=== PATIENT | male | born 1985 | race Caucasian/White ===

== ENCOUNTER → 2017-06-24 | Outpatient (CLI) | payer MEDICAID ==
--- NOTE | 2017-06-24 10:00 | RADIOLOGY REPORT (SQ) ---
EXAM DESCRIPTION: U/S RETROPERITON (RENAL/AORTA) COMPLETED DATE/TIME: 06/24/2017 9:35 am REASON FOR STUDY: HTN I10 ESSENTIAL (PRIMARY) HYPERTENSION COMPARISON: None. TECHNIQUE: Dynamic and static grayscale images acquired of the kidneys and bladder and recorded on P ACS. Additional selected color Doppler and spectral images recorded. LIMITATIONS: None. FINDINGS: RIGHT KIDNEY: The right kidney measures 10.2 cm in length, normal size. Normal echogenici ty. No solid or suspicious masses. No hydronephrosis. No calcifications. LEFT KIDNEY: Left kidney measures 10.6 cm in length, normal size. Normal echogenicity. No solid or s uspicious masses. No hydronephrosis. No calcifications. BLADDER: Internal echoes are present within the urinary bladder, may be on the basis of debris. Mild diffuse thickening of the urinary bladder wall is suggested, may represent inflammatory changes. OTHER FINDINGS: No other significant finding. IMPRESSION: 1 Renal ultrasound examination is unremarkable. 2 Mild diffuse thickening of the urinary bladder wall may be on the basis of inflammatory changes. U rinary bladder debris is noted. TECHNICAL DOCUMENTATION: JOB ID: [id number] [facility]- All Rights Reserved Reading location - IP/workstation name: [email or web address]
--- NOTE | 2017-06-24 11:46 | RADIOLOGY REPORT (SQ) ---
EXAM DESCRIPTION: U/S [facility] DUPLEX ART/BRENNAN FLOW COMPLETED DATE/TIME: 06/24/2017 9:35 am REASON FOR STUDY: HTN I10 ESSENTIAL (PRIMARY) HYPERTENSION COMPARISON: None. TECHNIQUE: Realtime and static grayscale images acquired. Selected color Doppler, velocities and spe ctral images recorded. LIMITATIONS: None. FINDINGS: RIGHT KIDNEY: RENAL ARTERY VELOCITIES: 47 cm/sec. Segmental artery velocity 43 cm/sec. RENAL VEIN: Color doppler flow present, patent. VELOCITY RATIO: 0.8. Normal waveforms. KIDNEY: Normal size. No significant pathology. LEFT KIDNEY: RENAL ARTERY VELOCITIES: 71 cm/sec. Segmental artery velocity 39 cm/sec. RENAL VEIN: Color doppler flow present, patent. VELOCITY RATIO: 1.1. Normal waveforms. KIDNEY: Normal size. No significant pathology. BLADDER: Normal. OTHER: No other significant finding. IMPRESSION: NO DOPPLER EVIDENCE OF HEMODYNAMICALLY SIGNIFICANT RENAL ARTERY STENOSIS. COMMENT: NORMAL RENAL ARTERY/AORTA VELOCITY RATIO IS LESS THAN OR EQUAL TO 3.5. TECHNICAL DOCUMENTATION: JOB ID: [id number] [employer]- All Rights Reserved Reading location - IP/workstation name: [email or web address]-RR
== END ==
LOC: RAD 08:14
PROVIDERS: ATTEND Registered Nurse
DX: I10 Essential (primary) hypertension (principal)
CPT/HCPCS: 76770; 93976

== ENCOUNTER 2018-03-04 22:12 | Emergency (ER) | payer MEDICAID ==
--- NOTE | 2018-03-05 01:42 | ER Document Report ---
ED Extremity Problem, Lower - General Chief Complaint: Laceration Stated Complaint: RIGHT KNEE PAIN Time Seen by Provider: 03/05/18 01:41 Mode of Arrival: Ambulatory Information source: Patient Notes: Patient is a 32-year-old male who presents with laceration to the left knee. Patient reports that he was using a knife to cut "zip ties on a metal fence" when the knife slipped and cut his right knee. He denies numbness or tingling of the extremity, bleeding was easily controlled, no pain or discomfort of the knee. He is able to ambulate without difficulties. He reports his last tetanus shot was "a few years ago." TRAVEL OUTSIDE OF THE [place] IN LAST 30 DAYS: No - HPI Patient complains to provider of: Injury Location: Knee Occurred: This afternoon Where: Home, Outdoors Onset/Duration: Sudden Quality of pain: No pain Severity: Mild Pain Level: Denies Context: Laceration Exacerbated by: Nothing Relieved by: Nothing - Related Data Allergies/Adverse Reactions: No Known Allergies Allergy (Unverified 03/04/18 22:16) Past Medical History - General Information source: Patient - Social History Smoking Status: Current Some Day Smoker Frequency of alcohol use: Occasional Drug Abuse: None Lives with: Family Family History: Reviewed & Not Pertinent Patient has suicidal ideation: No Patient has homicidal ideation: No - Past Medical History Cardiac Medical History: Reports: Hx Hypertension Pulmonary Medical History: Reports: None EENT Medical History: Reports: None Neurological Medical History: Reports: None Endocrine Medical History: Reports: None Renal/ Medical History: Reports: None Malignancy Medical History: Reports None GI Medical History: Reports: Hx Gastroesophageal Reflux Disease Musculoskeletal Medical History: Reports None Skin Medical History: Reports None Psychiatric Medical History: Reports: Hx Bipolar Disorder, Hx Schizophrenia Traumatic Medical History: Reports: None Infectious Medical History: Reports: None Surgical Hx: Negative Past Surgical History: Reports: None - Immunizations Immunizations up to date: Yes Hx Diphtheria, Pertussis, Tetanus Vaccination: Yes Review of Systems - Review of Systems Constitutional: No symptoms reported EENT: No symptoms reported Cardiovascular: No symptoms reported Respiratory: No symptoms reported Gastrointestinal: No symptoms reported Genitourinary: No symptoms reported Male Genitourinary: No symptoms reported Musculoskeletal: No symptoms reported Skin: See HPI, Other - Laceration Hematologic/Lymphatic: No symptoms reported Neurological/Psychological: No symptoms reported -: Yes All other systems reviewed and negative Physical Exam - Vital signs Vitals: Temp Pulse Resp BP Pulse Ox 98.0 F 94 15 138/91 H 97 03/04/18 22:31 03/04/18 22:31 03/04/18 22:31 03/04/18 22:31 03/04/18 22:31 Interpretation: Normal - Notes Notes: Well-appearing in no acute distress - General General appearance: Appears well, Alert - HEENT Head: Normocephalic, Atraumatic Eyes: Normal Pupils: PERRL - Respiratory Respiratory status: No respiratory distress Chest status: Nontender Breath sounds: Normal Chest palpation: Normal - Cardiovascular Rhythm: Regular Heart sounds: Normal auscultation Murmur: No - Abdominal Inspection: Normal Distension: No distension Bowel sounds: Normal Tenderness: Nontender Organomegaly: No organomegaly - Rectal Notes: Deferred - Genitourinary Notes: Deferred - Back Back: Normal, Nontender - Extremities General upper extremity: Normal inspection, Nontender, Normal color, Normal ROM, Normal temperature General lower extremity: Nontender, Normal color, Normal ROM, Normal tempera ture, Normal weight bearing. No: Cecelia's sign Knee: Nontender, Laceration - Approximately 1 cm linear laceration to the medial right knee, bleeding is controlled, no visible foreign body - Neurological Neuro grossly intact: Yes Cognition: Normal Orientation: AAOx4 Trona Coma Scale Eye Opening: Spontaneous Shanna Coma Scale Verbal: Oriented Shanna Coma Scale Motor: Obeys Commands Trona Coma Scale Total: 15 Speech: Normal Motor strength normal: LUE, RUE, LLE, RLE Sensory: Normal - Psychological Associated symptoms: Normal affect, Normal mood - Skin Skin Temperature: Warm Skin Moisture: Dry Skin Color: Normal Course - Re-evaluation Re-evalutation: 03/05/18 03:24 X-rays are negative for metallic foreign body. Patient was given oral Keflex and will have his laceration cleaned and repaired with suture material. He will be reassessed after the procedure. 03/05/18 04:26 Laceration repair without difficulties, please see procedure note for details. Patient will be discharged home with return precautions and follow-up, he will be provided with a prescription for Keflex. Patient voices both understanding and agreeing with the plan. - Vital Signs Vital signs: Temp Pulse Resp BP Pulse Ox 98.0 F 94 15 138/91 H 97 03/04/18 22:31 03/04/18 22:31 03/04/18 22:31 03/04/18 22:31 03/04/18 22:31 - Diagnostic Test Radiology reviewed: Reports reviewed Procedures - Laceration/Wound Repair Right Medial Knee Time completed: 04:27 Wound length (cm): 1.5 Wound's Depth, Shape: Superficial, Linear Laceration pre-procedure: Sterile PPE donned, Chloraprep applied, Sterile drapes applied Anesthetic type: 1% Lidocaine w/epi Volume Anesthetic (mLs): 5 Wound explored: Clean, No foreign body removed Irrigated w/ Saline (mLs): 500 Wound Debrided: Minimal Wound Repaired With: Sutures Suture Size/Type: 4:0, Prolene Number of Sutures: 3 - Horizontal mattress Layer Closure?: No Post-procedure wound care: Sterile dressing applied Post-procedure NV exam normal: Yes Complications: No Notes: 03/05/18 04:28 Well-tolerated Discharge - Discharge Clinical Impression: Laceration of right knee Qualifiers: Encounter type: initial encounter Qualified Code(s): S81.011A - Laceration without foreign body, right knee, initial encounter Condition: Good Disposition: HOME, SELF-CARE Instructions: Laceration Care ([facility]) Additional Instructions: Please follow-up with your primary physician in 7-10 days to have your stitches removed, if they are unavailable you may return to the emergency department to have them removed. Take the prescribed antibiotics as instructed. Return to the emergency department if you experience high fevers, increased swelling or drainage from the area, or have any other concerning symptom. Prescriptions: Cephalexin Monohydrate [Keflex 500 mg Capsule] 500 mg PO Q6H 10 Days #40 capsule Referrals: SHAWN DELEON, NUCLEAR RADIATION ENGINEER [Primary Care Provider] - Follow up as needed Print Language: Indonesian
--- NOTE | 2018-03-05 01:54 | RADIOLOGY REPORT (SQ) ---
4 VIEWS OF THE RIGHT KNEE HISTORY: Laceration to medial knee. Pain to medial aspect of knee. COMPARISON: None. FINDINGS: No acute fracture is seen. The joint spaces are preserved. There is a small knee joint effusion. IMPRESSION: No acute fracture is seen, although there is a small knee joint effusion. Consider CT scan if there is high clinical concern or point tenderness.
[2018-03-05] MEDS ORDERED: LIDOCAINE 1%/EPINEPHRINE INJ 20 ML VIAL INJ ONE (02:18)
[2018-03-05] MEDS ORDERED: CEPHALEXIN 500 MG CAPSULE PO ONE (02:21)
[2018-03-05] MEDS ORDERED: TRAMADOL HCL 50 MG TABLET PO ONE (02:21)
[2018-03-05 04:41] VITALS: BP 137/84
== END 2018-03-05 04:42 | disposition home or self-care (01) ==
LOC: ER 22:12
DX: S81.011A Laceration without foreign body, right knee, initial encounter (principal); W26.0XXA Contact with knife, initial encounter; Y93.89 Activity, other specified; Y92.009 Unspecified place in unspecified non-institutional (private) residence as the place of occurrence of the external cause; F17.200 Nicotine dependence, unspecified, uncomplicated; I10 Essential (primary) hypertension
CPT/HCPCS: 99283; 73564; 12001; J3490

== ENCOUNTER 2018-03-14 10:45 | Emergency (ER) | payer MEDICAID ==
[2018-03-14] MEDS ORDERED: LABETALOL HCL INJ 20 MG/4 ML DISP.SYRIN IV ONE ×3 (11:52→12:40)
--- NOTE | 2018-03-14 11:55 | ER Document Report ---
ED Medical Screen (RME) - General Chief Complaint: High Blood Pressure Stated Complaint: BLOOD PRESSURE ISSUE Time Seen by Provider: 03/14/18 11:45 TRAVEL OUTSIDE OF THE [place] IN LAST 30 DAYS: No - HPI Notes: 03/14/18 11:54 Patient is a 32-year-old male that presents to the emergency department for chief complaint of hypertension. Patient has history of hard to control hypertension and is on lisinopril, hydrochlorothiazide, and clonidine. He states he did take these medications this morning and denies any missed medications. He is currently asymptomatic. He was being seen at [facility] and was referred to us for the hypertension. ROS: GENERAL: Denies fever of chills CV: Denies chest pain PHYSICAL EXAMINATION: GENERAL: Well-appearing, well-nourished and in no acute distress. HEAD: Atraumatic, normocephalic. EYES: Pupils equal round extraocular movements intact, conjunctiva are normal. ENT: Nares patent NECK: Normal range of motion LUNGS: No respiratory distress Musculoskeletal: Normal range of motion NEUROLOGICAL: Normal speech, normal gait. PSYCH: Normal mood, normal affect. MDM: Patient seen and examined for rapid initial assessment. Vital signs reviewed. A comprehensive ED assessment and evaluation of the patient, analysis of test results and completion of the medical decision making process will be conducted by additional ED providers. - Related Data Allergies/Adverse Reactions: No Known Allergies Allergy (Unverified 03/04/18 22:16) Past Medical History - Social History Chew tobacco use (# tins/day): No Drug Abuse: None - Past Medical History Cardiac Medical History: Reports: Hx Hypertension Renal/ Medical History: Reports: Hx Peritoneal Dialysis GI Medical History: Reports: Hx Gastroesophageal Reflux Disease Psychiatric Medical History: Reports: Hx Bipolar Disorder, Hx Schizophrenia - Immunizations Immunizations up to date: Yes Hx Diphtheria, Pertussis, Tetanus Vaccination: Yes Physical Exam - Vital signs Vitals: Temp Pulse Resp BP Pulse Ox 98.5 F 116 H 16 200/145 H 98 03/14/18 10:49 03/14/18 10:49 03/14/18 10:49 03/14/18 10:49 03/14/18 10:49 Course - Vital Signs Vital signs: Temp Pulse Resp BP Pulse Ox 98.5 F 116 H 16 200/145 H 98 03/14/18 10:49 03/14/18 10:49 03/14/18 11:43 03/14/18 10:49 03/14/18 10:49 Doctor's Discharge - Discharge Referrals: SHAWN DELEON STRATEGY LEAD [Primary Care Provider] - Follow up as needed
[2018-03-14 12:37] LABS: ABSOLUTE BASOPHILS # (AUTO) 0.1 10^3/uL (0.0-0.2); ABSOLUTE LYMPHOCYTES (AUTO) 1.1 10^3/uL (0.5-4.7); ABSOLUTE MONOCYTES (AUTO) 0.6 10^3/uL (0.1-1.4); BASOPHILS % (AUTO) 0.6 % (0-2); EOSINOPHILS % (AUTO) 0.3 % (0-6); HEMATOCRIT 46.3 % (37.9-51.0); HEMOGLOBIN 16.7 g/dL (13.5-17.0); LYMPHOCYTES % (AUTO) 10.9 % (13-45); MEAN CORPUSCULAR HGB CONC 36.1 g/dL (32.0-36.0); MEAN CORPUSCULAR VOLUME 89 fl (80-97); MONOCYTES % (AUTO) 6.2 % (3-13); PLATELET COUNT 349 10^3/uL (150-450); RED BLOOD COUNT 5.23 10^6/uL (4.35-5.55); RED CELL DISTRIBUTION WIDTH 12.2 % (11.5-14.0); TOTAL CELLS COUNTED % (AUTO) 100 %; WHITE BLOOD COUNT 9.8 10^3/uL (4.0-10.5)
--- NOTE | 2018-03-14 12:39 | ER Document Report ---
ED Blood Pressure Problem - General Chief Complaint: High Blood Pressure Stated Complaint: BLOOD PRESSURE ISSUE Time Seen by Provider: 03/14/18 11:45 Mode of Arrival: Ambulatory Information source: Patient Notes: Chief complaint: Elevated blood pressure History of complain:( obtained from----patient) 32 years old male with history of high blood pressure presents today with elevated blood pressure. According to the DKA his noncompliant with medications. Eats lots of chips which contain salt. He is asymptomatic. Denies any headache denies any focal weaknesses denies any chest pain denies any constitutional symptoms. Onset: Gradual Duration: Last 2 days Severity: Moderate Quality: Not applicable Context: Noncompliance Exacerbating factor and relieving factors: None REVIEW OF SYSTEMS: CONSTITUTIONAL : Denies fever, chills, or sweats. Denies recent illness. EENT: Denies eye, ear, throat, or mouth pain or symptoms. Denies nasal or sinus congestion or discharge. Denies throat, tongue, or mouth swelling or difficulty swallowing. CARDIOVASCULAR: Denies chest pain. Denies palpitations or racing or irregular heart beat. Denies ankle edema. RESPIRATORY: Denies cough, cold, or chest congestion. Denies shortness of breath, difficulty breathing, or wheezing. GASTROINTESTINAL: Denies distention. Denies nausea, vomiting, or diarrhea. Denies blood in vomitus, stools, or per rectum. Denies black, tarry stools. Denies constipation. GENITOURINARY: Denies difficulty urinating, painful urination, burning, frequency, blood in urine, or discharge. FEMALE GENITOURINARY: Denies vaginal bleeding, heavy or abnormal periods, irregular periods. Denies vaginal discharge or odor. MUSCULOSKELETAL: Denies back or neck pain or stiffness. Denies joint pain or swelling. SKIN: Denies rash, lesions or sores. HEMATOLOGIC : Denies easy bruising or bleeding. LYMPHATIC: Denies swollen, enlarged glands. NEUROLOGICAL: Denies confusion or altered mental status. Denies passing out or loss of consciousness. Denies dizziness or lightheadedness. Denies headache. Denies weakness or paralysis or loss of use of either side. Denies problems with gait or speech. Denies sensory loss, numbness, or tingling. Denies seizures. PSYCHIATRIC: Denies anxiety or stress. Denies depression, suicidal ideation, or homicidal ideation. ALL OTHER SYSTEMS REVIEWED AND NEGATIVE. PHYSICAL EXAMINATION: GENERAL: Well-appearing, well-nourished and in no acute distress. HEAD: Atraumatic, normocephalic. EYES: Pupils equal round and reactive to light, extraocular movements intact, conjunctiva are normal. ENT: Nares patent, oropharynx clear without exudates. Moist mucous membranes. NECK: Normal range of motion, supple without lymphadenopathy LUNGS: Breath sounds clear to auscultation bilaterally and equal. No wheezes rales or rhonchi. HEART: Regular rate and rhythm without murmurs ABDOMEN: Soft, nontender, nondistended abdomen. No guarding, no rebound. No masses appreciated. Examination of genitals-deferred Musculoskeletal: Normal range of motion, no pitting or edema. No cyanosis. NEUROLOGICAL: Cranial nerves grossly intact. Normal speech, normal gait. Normal sensory, motor exams PSYCH: Normal mood, normal affect. SKIN: Warm, Dry, normal turgor, no rashes or lesions noted. Dictation was performed using [employer] voice recognition software TRAVEL OUTSIDE OF THE [place] IN LAST 30 DAYS: No - HPI Notes: Dictated - Related Data Allergies/Adverse Reactions: No Known Allergies Allergy (Unverified 03/04/18 22:16) Past Medical History - Social History Smoking Status: Smoker,Current Status Unk Chew tobacco use (# tins/day): No Frequency of alcohol use: None Drug Abuse: None Lives with: Family Family History: Reviewed & Not Pertinent Patient has suicidal ideation: No Patient has homicidal ideation: No - Past Medical History Cardiac Medical History: Reports: Hx Hypertension Renal/ Medical History: Reports: Hx Peritoneal Dialysis GI Medical History: Reports: Hx Gastroesophageal Reflux Disease Psychiatric Medical History: Reports: Hx Bipolar Disorder, Hx Schizophrenia - Immunizations Immunizations up to date: Yes Hx Diphtheria, Pertussis, Tetanus Vaccination: Yes Review of Systems - Review of Systems Notes: Dictated Physical Exam - Vital signs Vitals: Temp Pulse Resp BP Pulse Ox 98.5 F 116 H 16 200/145 H 98 03/14/18 10:49 03/14/18 10:49 03/14/18 10:49 03/14/18 10:49 03/14/18 10:49 - Notes Notes: Dictated Course - Re-evaluation Re-evalutation: 03/14/18 17:16 Blood pressure has come down but not normal yet but patient wished to go home and rest. - Vital Signs Vital signs: Temp Pulse Resp BP Pulse Ox 98.5 F 116 H 20 210/142 H 100 03/14/18 10:49 03/14/18 10:49 03/14/18 14:01 03/14/18 14:01 03/14/18 14:01 - Laboratory Result Diagrams: 03/14/18 12:27 03/14/18 12:27 Laboratory results interpreted by me: 03/14/18 03/14/18 12:27 12:27 MCHC 36.1 H Seg Neutrophils % 82.0 H Lymphocytes % 10.9 L Carbon Dioxide 31 H - EKG Interpretation by Al EKG shows normal: Sinus rhythm - At the rate of 90 bpm, normal axis, no acute ST elevation ST depression noted. No T wave inversion. Possible left ventricular hypertrophy by voltage Discharge - Discharge Clinical Impression: Hypertension Qualifiers: Hypertension type: essential hypertension Qualified Code(s): I10 - Essential (primary) hypertension Bipolar disorder Qualifiers: Active/Remission status: in partial remission Most recent bipolar episode type: mixed Qualified Code(s): F31.77 - Bipolar disorder, in partial remission, most recent episode mixed Condition: Fair Disposition: HOME, SELF-CARE Instructions: Angiotensin Converting Enzyme Inhibitor Medication ([facility]), High Blood Pressure ([facility]) Prescriptions: Amlodipine Besylate [Norvasc 10 mg Tablet] 10 mg PO DAILY #30 tablet Referrals: SHAWN DELEON, COMPLEX MANAGER [Primary Care Provider] - Follow up as needed
[2018-03-14 13:01] LABS: ALANINE AMINOTRANSFERASE 29 U/L (21-72); ALKALINE PHOSPHATASE 106 U/L (38-126); ANION GAP 8 (5-19); ASPARTATE AMINO TRANSFERASE 21 U/L (17-59); BILIRUBIN,DIRECT 0.1 mg/dL (0.0-0.4); BILIRUBIN,TOTAL 0.6 mg/dL (0.2-1.3); BLOOD UREA NITROGEN 11 mg/dL (7-20); CALCIUM 9.8 mg/dL (8.4-10.2); CARBON DIOXIDE 31 mmol/L (22-30); CHLORIDE 99 mmol/L (98-107); GLUCOSE 102 mg/dL (75-110); POTASSIUM 3.7 mmol/L (3.6-5.0); SODIUM 137.6 mmol/L (137-145); TOTAL PROTEIN 7.6 g/dL (6.3-8.2)
[2018-03-14] MEDS ORDERED: LORAZEPAM INJ 2 MG/1 ML VIAL IV ONE (15:58)
[2018-03-14] MEDS ORDERED: CLONIDINE HCL 0.2 MG TABLET PO ONE (15:58)
[2018-03-14] MEDS ORDERED: AMLODIPINE BESYLATE 10 MG TABLET PO ONE (17:17)
[2018-03-14 17:19] VITALS: BP 169/119
== END 2018-03-14 17:29 | disposition home or self-care (01) ==
LOC: ER 10:45
DX: I10 Essential (primary) hypertension (principal); F31.77 Bipolar disorder, in partial remission, most recent episode mixed; F17.200 Nicotine dependence, unspecified, uncomplicated
CPT/HCPCS: 99283; 96374; 96375; 36415; 85025; 80053; 84484; J3490 ×2; J2060